=== PATIENT | female | born 1965 | race Caucasian/White ===

== ENCOUNTER 2021-11-10 15:30 | Emergency (ER) | payer OTHER, SELFPAY ==
--- NOTE | ~2021-11-10 | XR_ITS ---
EXAMINATION: XR chest 2V DATE: 11/10/2021 16:07 INDICATION: Cough TECHNIQUE: PA and lateral views of the chest are obtained. COMPARISON: None available FINDINGS: The lungs are free of acute opacities. There is no pleural effusion or pneumothorax. The ca rdiomediastinal silhouette is normal. There is moderate thoracic spondylosis. IMPRESSION: 1. No acute cardiopulmonary abnormality. Reviewed, dictated and finalized at location B.
[2021-11-10 15:50] VITALS: BP 160/102; PULSE 109; RESP 18; TEMP 36.8; O2SAT 100
--- NOTE | 2021-11-10 15:56 | ED.URI ---
HPI - URI/Sore Throat General Chief Complaint: Upper Respiratory Infection Stated Complaint: cough Time Seen by Provider: 11/10/21 16:05 Source: patient Mode of arrival: ambulatory Limitations: no limitations History of Present Illness HPI Narrative: Marie Candelaria is a 56 yo female with no PMH who has 2 of cough that has recently worsened, and has been in bed for last 2 days, has cough low-grade fever feels terrible he states that her nose has been dry so much is starting to bleed Related Data Allergies Allergy/AdvReac Type Severity Reaction Status Date / Time No Known Allergies Allergy Mild Verified 11/10/21 15:58 Review of Systems Review of Systems: CONSTITUTIONAL: have fever, chills, sweats. EYES: Denies visual changes, redness, discharge. ENT: Denies rhinorrhea, has congestion, sore throat, otalgia. CARDIOVASCULAR: Denies chest pain, palpitations, edema. RESPIRATORY: Denies dyspnea, wheezing, has dry cough GASTROINTESTINAL: Denies abdominal pain, nausea, vomiting, diarrhea. GENITOURINARY: Denies dysuria, hematuria, abnormal discharge SKIN: Denies rash or itching. NEUROLOGIC: Denies numbness, or focal weakness. PSYCHIATRIC: Denies anxiety or depression. [facility] Past Medical History Medical History Healthy adult Surgical History Surgical History H/O foot surgery bilateral Hx of section Social History Social History (Updated 11/10/21 @ 16:19 by Lulu Sr CNP) Smoking status: Never smoker Alcohol intake: current Comments At time of signature, I agree with nursing past medical, surgical, social and family history. There is no relevant family history pertinent to the presenting complaint. Note Blood pressure elevated at this visit that does not have a diagnosis of high blood pressure should follow-up Exam Narrative: GENERAL: This is a well-nourished, well-developed patient, in moderate distress. Diaphoretic HEAD: normocephalic, atraumatic. EYES: Sclera clear/white. Vision is grossly intact. EARS: External ears normal, Hearing grossly intact. NOSE: External nose normal without nasal discharge, nares without redness, no rhinorrhea. THROAT: Mucous membranes moist, NECK: Neck supple, non-tender CARDIOVASCULAR: Tachycardic rate and rhythm without murmurs, gallops, or rubs. RESPIRATORY: Clear to auscultation. Breath sounds equal diminished mid left. No wheezes, rales, or rhonchi. GASTROINTESTINAL: Abdomen soft, non-tender, SKIN: warm, intact with no suspicious lesions or rash, good texture and turgor. NEURO: awake, alert, and oriented to person, place and time. There were no obvious focal neurologic abnormalities. Steady gait EXTREMITIES: Normal range of motion. BACK: Nontender without deformity Course Course Emergency Course: Patient sick for 2 weeks with a cough in the last week is gone worse feeling poorly has had no energy fatigue Flu swab done-positive for flu a chest xray negative Patient has symptoms of chronic nasal congestion and is concerned about infection Started on Augmentin Level of Care: Express Care Visit Vital Signs Vital signs: Vital Signs Temperature 98.3 F 11/10/21 15:50 Pulse Rate 109 H 11/10/21 15:50 Respiratory Rate 18 11/10/21 15:50 Blood Pressure 160/102 H 11/10/21 15:50 Pulse Oximetry 100 11/10/21 15:50 Temperature 98.3 F 11/10/21 15:50 Pulse Rate 109 H 11/10/21 15:50 Respiratory Rate 18 11/10/21 15:50 Blood Pressure 160/102 H 11/10/21 15:50 Pulse Oximetry 100 11/10/21 15:50 MDM - URI/Sore Throat Differential Diagnosis Differential diagnosis: Likely upper respiratory infection, sinusitis, viral infection and influenza Lab Data Labs: Influenza A Screen Positive Reference Range: Negative Influenza B Screen Negative
== END 2021-11-10 16:31 | disposition home or self-care (01) ==
PROVIDERS: Emergency Provider Nurse Practitioner
DX: J10.1 Influenza due to other identified influenza virus with other respiratory manifestations (principal); J32.9 Chronic sinusitis, unspecified
CPT/HCPCS: 71046; 87804; 99213; G0463

== ENCOUNTER 2025-01-10 09:33 | Emergency (ER) | payer OTHER, SELFPAY ==
--- NOTE | ~2025-01-10 | XR_ITS ---
EXAMINATION: XR ankle RT min 3V DATE: 01/10/2025 10:32 INDICATION: Right ankle pain and swelling post fall TECHNIQUE: Anteroposterior, oblique, mortise, and lateral views of the right ankle were obtained. COMPARISON: None. FINDINGS: Alignment is normal. No fracture. 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 Small Achilles and plantar calcaneal spurs. Soft tissue swelling overlying the lateral malleolus. No evident ankle joint effusion. IMPRESSION: 1. Mild degenerative skeletal changes. No acute osseous abnormality. Reviewed, dictated and finalized at location A.
[2025-01-10 09:49] VITALS: BP 179/75; PULSE 88; RESP 18; TEMP 36.4; O2SAT 100
--- NOTE | 2025-01-10 10:07 | ED.LOWEXIN ---
HPI - Extremity Injury (Lower) General Chief Complaint: Extremity Injury, Lower Stated Complaint: fall Time Seen by Provider: 01/10/25 10:17 Source: patient, RN notes reviewed and old records reviewed Mode of arrival: ambulatory Limitations: no limitations History of Present Illness HPI Narrative: 59-year-old female presents to the [facility] complaints right ankle pain and swelling. Patient states that she ?tripped over air? at 2:00 p.m. yesterday. Has taken Aleve and has been applying ice Currently has her own set of crutches Onset (ago): hour(s) Treatments prior to arrival: cold therapy and NSAIDS Related Data Home Medications ?Medication ?Instructions ?Recorded ?Confirmed ?Last Taken ?Type No Home Medications 01/10/25 01/10/25 Unknown History Allergies Allergy/AdvReac Type Severity Reaction Status Date / Time No Known Allergies Allergy Mild Verified 01/10/25 09:58 Review of Systems Review of Systems: All systems reviewed & are unremarkable except as noted in HPI and below Constitutional: Constitutional: Reports no additional constitutional complaints ENT: Reports system reviewed and no additional complaints, except as documented Cardiovascular: Cardiovascular: Reports no additional cardiovascular complaints, Denies chest pain and Denies dyspnea Respiratory: Respiratory: Reports no additional respiratory complaints, Denies chest congestion, Denies cough and Denies dyspnea Musculoskeletal: Musculoskeletal: Reports as per HPI, Reports abnormal gait, Reports arthralgias and Reports joint swelling Integumentary/Breasts: Skin/Breast: Reports system reviewed and no additional complaints, except as docu PMFSH Past Medical History Medical History Healthy adult Surgical History Surgical History H/O foot surgery bilateral Hx of section Social History Social History Smoking status: Never smoker Alcohol intake: current Comments At the time of my signature, I reviewed and agree with the nursing past medical, surgical, social, and family history. There is no relevant family history pertinent to the patient complaint. Exam Const: General: cooperative, healthy appearing, comfortable, no acute distress, well developed, alert and well nourished Nutritional Appearance: well nourished and obese Orientation/consciousness: patient oriented x3 Limitations: no limitations HENMT: Head: normal to inspection Eyes: General: appearance normal, both eyes and all related structures Alignment and Position: alignment normal Neck: Neck: normal visual inspection, full ROM, no lymphadenopathy and no meningeal signs Chest: Chest palpation & inspection: normal inspection of the chest Resp: Effort & Inspection: normal respiratory effort and able to speak in complete sentences Cardio: Rate: regular rate Skin: General skin exam: normal color and no rashes or lesions noted Neuro: General: patient oriented x3, gait normal, moves all extremities and no meningeal signs Cognition (Neuro): normal cognition Speech: normal speech Gait exam (Neuro): Normal gait present Extrem: General: normal to inspection, full ROM, capillary refill normal and normal gait Right lower extremity: knee Details: normal to inspection, lower leg Details: normal to inspection, ankle Details: tenderness Location: of the lateral malleolus and swelling Details: laterally and foot Details: normal capillary refill, toes with normal ROM, vascular exam Details: dorsalis pedis pulse present and normal capillary refill and motor-sensory exam Details: light-touch normal; no ecchymosis Psych: Appearance: grossly normal and well kempt Mental Status: mental status grossly normal Speech and movement: Normal speech and movement present and Clear speech present Affect: normal affect Attitude: cooperative Course Course Level of Care: Express Care Visit Vital Signs Vital signs: Vital Signs Temperature 97.5 F L 01/10/25 09:49 Pulse Rate 88 01/10/25 09:49 Respiratory Rate 18 01/10/25 09:49 Blood Pressure 179/75 H 01/10/25 09:49 Pulse Oximetry 100 01/10/25 09:49 Oxygen Delivery Room Air 01/10/25 09:49 Temperature 97.5 F L 01/10/25 09:49 Pulse Rate 88 01/10/25 09:49 Respiratory Rate 18 01/10/25 09:49 Blood Pressure 179/75 H 01/10/25 09:49 Pulse Oximetry 100 01/10/25 09:49 Oxygen Delivery Room Air 01/10/25 09:49 Reviewed MDM - Extremity Injury (Lower) MDM Narrative Medical decision making narrative: Patient sitting in exam. Patient is nontoxic, vitals are stable. Patient presents right ankle pain x-rays negative. Patient appropriate for outpatient treatment close follow-up Discharge instructions reviewed with patient, as well as provided in writing per nursing staff. The instructions also include specific and strict return/GO TO THE ER as well as f/u information. All questions have been answered, and the patient deny any further questions with discharge and discharge plan. Some parts of this dictation were generated by voice recognition software and may contain typographical and/or grammatical inaccuracies. Differential Diagnosis Differential diagnosis: Likely ankle sprain and strain and ankle fracture Imaging Data Radiologist's impression: EXAMINATION: XR ankle RT min 3V DATE: 01/10/2025 10:32 INDICATION: Right ankle pain and swelling post fall TECHNIQUE: Anteroposterior, oblique, mortise, and lateral views of the right ankle were obtained. COMPARISON: None. FINDINGS: Alignment is normal. No fracture. 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 Small Achilles and plantar calcaneal spurs. Soft tissue swelling overlying the lateral malleolus. No evident ankle joint effusion. IMPRESSION: 1. Mild degenerative skeletal changes. No acute osseous abnormality. Critical Care Time Critical Care Time Critical Care Time: No Discharge Plan Discharge Clinical Impression: Ankle sprain and strain Patient Disposition: Home Condition: Stable Instructions: Ankle Sprain (ED) Additional Instructions: Today your blood pressure was 179/75. Please follow-up with your primary care provider within the next 2 weeks to have this rechecked. Untreated or undertreated blood pressure can lead to more serous health issues Your Xray did not show a fracture. Wear good supportive shoes at all times. Ice should be applied to help reduce swelling. It can be used for 20 to 30 minutes, every 2-3 hours while awake. Do not apply ice directly to your skin. ankle braces or mai-wraps will help support your injured ankle. You can alternate ibuprofen 600mg and Tylenol 650mg every 4 hours as needed for pain Please schedule a follow-up visit with your personal physician for further evaluation and treatment within 2 weeks especially if symptoms persist. For new or worsening symptoms go directly to the emergency room Patient Language: Serbian Prescriptions: No Action No Home Medications Follow-up/Referrals: UNKNOWN,DOCTOR [Primary Care Provider] - Stand Alone Forms: Work/School Release IP Time of Disposition: 10:52
== END 2025-01-10 10:57 | disposition home or self-care (01) ==
PROVIDERS: Emergency Provider Nurse Practitioner
DX: S93.401A Sprain of unspecified ligament of right ankle, initial encounter (principal); S96.911A Strain of unspecified muscle and tendon at ankle and foot level, right foot, initial encounter; W01.0XXA Fall on same level from slipping, tripping and stumbling without subsequent striking against object, initial encounter
CPT/HCPCS: 73610; 99213; G0463

== ENCOUNTER 2025-03-07 04:53 | Emergency (ER) | payer OTHER, SELFPAY ==
[2025-03-07 05:00] VITALS: BP 188/93; PULSE 81; RESP 20; TEMP 36.8; O2SAT 99
--- NOTE | 2025-03-07 05:10 | ED.GENADULT ---
HPI - General Adult General Chief complaint: Unspecified Stated complaint: sciatica pain Time Seen by Provider: 03/07/25 05:03 History of Present Illness HPI narrative: 59-year-old female with a history of sciatica presenting to the emergency department with stated sciatica pain. Patient states she has been doing with sciatica intermittently for many years and this is the worst it has been. She states that she does see a chiropractor and has been having some relief of her sciatica for last few weeks but she was having exacerbation over last few days after she sat on a hard bench for several hours. Endorses her classical sciatic symptoms including pain down her left buttock into the posterior aspect of the leg into the knee. Is able ambulate and bear weight but notes certain positions make it uncomfortable. Worse with flexion at the hip and dorsiflexion of the ankle. No neuropathy or weakness. No neurological complaints or midline spinal pain or tenderness. No urinary issues. Has tried some ibuprofen, Aleve, hydrocodone at home without any symptom improvement. She has had steroids for this in the past with improvement. She has an upcoming appointment this Sunday with specialists to help address this. Related Data Allergies Allergy/AdvReac Type Severity Reaction Status Date / Time No Known Allergies Allergy Mild Verified 01/10/25 09:58 Review of Systems Review of Systems: As reviewed above in HPI [facility] Past Medical History Medical History Healthy adult Surgical History Surgical History H/O foot surgery bilateral Hx of section Social History Social History Smoking status: Never smoker Alcohol intake: current Exam Narrative: GENERAL: Tearful and affect but not any acute physical distress HEAD: [Normocephalic, atraumatic.] EYES: [PERRLA and EOMI.] ENT: Nares clear, no rhinorrhea or epistaxis. Mucous membranes moist. NECK: Supple. CHEST: [Clear to auscultation. No respiratory distress.] HEART: [Regular rate and rhythm]. No murmur heard. [Normal peripheral pulses.] ABDOMEN: [Soft, nondistended], [nontender], [No rigidity or guarding] EXTREMITIES: Pain is reproducible with straight leg raise on the left side, contralateral straight leg raise also elicits left-sided symptoms. Plantar flexion and dorsiflexion 5/5 but pain reproducible with dorsiflexion of the left ankle. EHL and FHL with 5/5 strength. No footdrop or weakness. No tenderness along the hip or knee. No tenderness on the ankle. SKIN: Warm, dry, no rash. NEURO: [No focal deficits]. Alert and oriented [x3.] PSYCH: [Normal mood and affect.] Course Vital Signs Vital signs: Vital Signs Temperature 36.8 C 03/07/25 05:00 Pulse Rate 81 03/07/25 05:00 Respiratory Rate 20 03/07/25 05:00 Blood Pressure 188/93 H 03/07/25 05:00 Pulse Oximetry 99 03/07/25 05:00 Oxygen Delivery Room Air 03/07/25 05:00 Temperature 36.8 C 03/07/25 05:00 Pulse Rate 85 03/07/25 07:21 Respiratory Rate 18 03/07/25 07:21 Blood Pressure 169/81 H 03/07/25 07:21 Pulse Oximetry 96 03/07/25 07:21 Oxygen Delivery Room Air 03/07/25 05:00 Medical Decision Making MDM Narrative Medical decision making narrative: 59-year-old female with a history of sciatica presenting to the emergency department with stated sciatica pain. Patient states she has been doing with sciatica intermittently for many years and this is the worst it has been. She states that she does see a chiropractor and has been having some relief of her sciatica for last few weeks but she was having exacerbation over last few days after she sat on a hard bench for several hours. Endorses her classical sciatic symptoms including pain down her left buttock into the posterior aspect of the leg into the knee. Is able ambulate and bear weight but notes certain positions make it uncomfortable. Worse with flexion at the hip and dorsiflexion of the ankle. No neuropathy or weakness. No neurological complaints or midline spinal pain or tenderness. No urinary issues. Has tried some ibuprofen, Aleve, hydrocodone at home without any symptom improvement. She has had steroids for this in the past with improvement. She has an upcoming appointment this Sunday with specialists to help address this. Patient is tearful but not any acute distress, does have reproducible pain with straight leg raise and contralateral straight leg raise. No neurological findings on examination and no red flag signs or symptoms of back pain such as conus medullaris or cauda equina pathology. No footdrop or paresthesias. No saddle anesthesias. EHL and FHL 5/5 strength. Strong symmetric pulses. Mildly hypertensive but appears in pain. No tachycardia, fever or hypoxia. She was given intramuscular Decadron and Dilaudid for analgesia and pain control. Oral Robaxin administered. Patient re-evaluated for symptom improvement. No indications for advanced imaging at this time as the patient has a history of sciatica and this feels very classic for her flare up. Patient evaluated after initial treatment around and had mild relief but still feeling significant amounts of pain. She was given IV Dilaudid and Toradol and re-evaluated. Patient had significant improvement after repeat dilaudid and was stable for discharge home. Given prescription medications and follow-up instructions. Medical Records Medical records reviewed: Yes I reviewed the external patient's medical records. Vital Signs Vital Signs: Vital Signs Temperature 36.8 C 03/07/25 05:00 Pulse Rate 81 03/07/25 05:00 Respiratory Rate 20 03/07/25 05:00 Blood Pressure 188/93 H 03/07/25 05:00 Pulse Oximetry 99 03/07/25 05:00 Oxygen Delivery Room Air 03/07/25 05:00 Temperature 36.8 C 03/07/25 05:00 Pulse Rate 85 03/07/25 07:21 Respiratory Rate 18 03/07/25 07:21 Blood Pressure 169/81 H 03/07/25 07:21 Pulse Oximetry 96 03/07/25 07:21 Oxygen Delivery Room Air 03/07/25 05:00 Lab Data Lab results reviewed: Yes I reviewed the patient's lab results. Discharge Plan Discharge Clinical Impression: Sciatica Patient Disposition: Home Condition: Stable Instructions: Antibiotic Form, Sciatica (ED) Additional Instructions: You were seen for sciatic nerve irritation and pain. Will prescribe you medications for symptom control at home. Follow-up with regular doctor. Return with any emergent concerns. Patient Language: Croatian Prescriptions: New acetaminophen [Tylenol Extra Strength] 500 mg tablet 1,000 mg PO TID PRN (Reason: pain) Qty: 30 0RF ketorolac 10 mg tablet 10 mg PO Q8H PRN (Reason: pain) 5 Days Qty: 20 0RF Rx Instructions: maximum total duration of 5 days from all oral, intranasal, or parenteral formulations methocarbamol 750 mg tablet 750 mg PO TID PRN (Reason: pain) Qty: 20 0RF lidocaine 5 % adhesive patch,medicated 1 patch topical DAILY Qty: 15 0RF Rx Instructions: leave on most painful area for up to 12 hrs Follow-up/Referrals: Emi Rowan NP [Primary Care Provider] - Time of Disposition: 07:18
[2025-03-07] MEDS: HYDROmorphone HCL INJ (*CRX) 2 MG/ML VIAL 1 MG IM (05:18)
[2025-03-07] MEDS: dexAMETHasone SOD PHOS INJ 10 MG/ML 1 ML VIAL IM (05:18)
[2025-03-07] MEDS: HYDROmorphone HCL INJ (*CRX) 2 MG/ML VIAL 1 MG IV PUSH (06:32)
[2025-03-07] MEDS: KETOROLAC 15 MG/ML VIAL (*BKC) IV PUSH (06:34)
[2025-03-07 07:09] VITALS: O2SAT 98
[2025-03-07 07:21] VITALS: BP 169/81; PULSE 85; RESP 18; O2SAT 96
== END 2025-03-07 07:33 | disposition home or self-care (01) ==
PROVIDERS: Emergency Provider Student in an Organized Health Care Education/Training Program; PCP Nurse Practitioner Family
DX: M54.32 Sciatica, left side (principal)
CPT/HCPCS: 96372; 96374; 96375; 99284; A9270; J1100; J1171; J1885

== ENCOUNTER 2025-05-26 07:28 | Outpatient (CLI) | payer OTHER, SELFPAY ==
--- NOTE | ~2025-05-26 | MR_ITS ---
EXAMINATION: MR ankle RT wo con DATE: 05/26/2025 08:03 INDICATION: Achilles tendon rupture TECHNIQUE: Magnetic resonance imaging (MRI) of the right ankle was performed without intravenous contrast. Sequences included sagittal, coronal, and axial proton-density weighted fast spin echo without and with fat saturation. COMPARISON: None. FINDINGS: Medial ankle ligaments: The superficial deltoid ligament as well as the spring ligament are normal. There is loss of the normally well-defined striated pattern to the deep deltoid ligament without associated edema consistent with scarring related to chronic sprain. Lateral ankle ligaments: The anterior and posterior inferior tibiofibular ligaments are normal. The anterior talofibular, calcaneofibular and posterior talofibular ligaments are normal. Tendons: Moderate Achilles tendinosis with near complete tear of the tendon occurring approximately 4.5 similar proximal to its calcaneal insertion. A single small slip of the tendon comprising less than 710% of the cross-sectional diameter of the tendon appears to remain intact. The torn portion of the tendon is retracted approximately 3 cm proximally with lax wavy appearance on the sagittal imaging. There is moderate tendinopathy of the distal plantaris tendon without discrete tear. Moderate tendinopathy of the peroneus longus and brevis tendons with longitudinal split tear of the peroneus brevis tendon and mild associated tenosynovitis. The tibialis anterior and extensor hallucis longus and extensor digitorum longus tendons are normal. The tibialis posterior, flexor digitorum longus and flexor hallucis longus tendons are normal. Plantar fascia: Moderate tendinopathy/enthesopathy of the central and lateral components of the plantar aponeurosis with moderate-sized plantar calcaneal spur at its calcaneal origin. There is thickening and increased fluid signal in the underlying plantar fat pad. Bones/other: Bone alignment is normal. No fracture or pathologic marrow replacing process. Polyarticular osteoarthritis, moderate severity at the second and third tarsal metatarsal joints and the naviculocuneiform joint. Mild osteoarthritis at the right ankle and remaining joints in the mid and hindfoot. Fluid: Small amount of fluid likely hematoma at the Achilles tendon tear defect. Physiologic amount fluid in the joint spaces. No other abnormal fluid collections. IMPRESSION: 1. Moderate Achilles tendinosis with high-grade partial/near complete tear located 4.5 similar proximal to the calcaneal insertion. 2. Moderate tendinopathy without discrete tear of the distal plantaris tendon. 3. Mild peroneal tenosynovitis with moderate tendinopathy of the peroneus longus and brevis tendons, the latter with longitudinal split tearing near the tip of the lateral malleolus. 4. Polyarticular osteoarthritis right ankle, mid and hindfoot, moderate severity at the naviculocuneiform and second and third tarsal metatarsal joints and otherwise mild. 5. Moderate chronic plantar enthesopathy with moderate-sized plantar calcaneal spur and edema and thinning of the underlying plantar fat pad. Would favor plantar fat pad syndrome over acute plantar fasciitis. Reviewed, dictated and finalized at location A. IMPRESSION: 1. Moderate Achilles tendinosis with high-grade partial/near complete tear loca danika 4.5 similar proximal to the calcaneal insertion. 2. Moderate tendinopathy without discrete tear of the distal plantaris tendon. 3. Mild peroneal tenosynovitis with moderate tendinopathy of the peroneus longu s and brevis tendons, the latter with longitudinal split tearing near the tip o f the lateral malleolus. 4. Polyarticular osteoarthritis right ankle, mid and hindfoot, moderate severit y at the naviculocuneiform and second and third tarsal metatarsal joints and ot herwise mild. 5. Moderate chronic plantar enthesopathy with moderate-sized plantar calcaneal spur and edema and thinning of the underlying plantar fat pad. Would favor plan tar fat pad syndrome over acute plantar fasciitis.
== END 2025-05-26 07:29 | disposition home or self-care (01) ==
LOC: MICIMG 07:29
PROVIDERS: PCP Nurse Practitioner Family; Visit Provider Podiatrist Foot & Ankle Surgery
DX: S86.011A Strain of right Achilles tendon, initial encounter (principal); X58.XXXA Exposure to other specified factors, initial encounter; M19.071 Primary osteoarthritis, right ankle and foot
CPT/HCPCS: 73721

== ENCOUNTER 2025-06-22 07:34 | Outpatient (CLI) | payer OTHER, SELFPAY ==
--- NOTE | ~2025-06-22 | NM_ITS ---
EXAMINATION: NM serena stress w perfusion DATE: 06/22/2025 11:23 INDICATION: Essential hypertension TECHNIQUE: Rest images were obtained following intravenous administration of 10.7 mCi Tc99m tetrofosmin (Myoview). The patient was infused intravenously with Lexiscan (Regadenoson). Then, 30 mCi Tc99m tetrofosmin (Myoview) was administered intravenously, and stress images were obtained, initially in the supine position with repeat post stress imaging obtained in the prone position. Data was reconstructed into short axis and horizontal and vertical long axis SPECT images. Gated SPECT images were also obtained. COMPARISON: None. FINDINGS: There is likely breast attenuation artifact along the anterior and lateral post stress imaging obtained in the supine position which normalizes in these locations on the prone post stress imaging. There is normal left ventricular chamber size, wall motion and ejection fraction. Left ventricular ejection fraction measures 70%. IMPRESSION: 1. Normal myocardial perfusion at rest and during stress. 2. Left ventricular ejection fraction measuring 70%. Reviewed, dictated and finalized at location A. 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
--- NOTE | 2025-06-22 07:57 | EST_ITS ---
Patient Info Name: Marie Candelaria Age: 60 years : 1965 Gender: Female Ht: 65 in Wt: 247 lbs BSA: 2.32 m2 HR: 61 bpm BP: 132 / 57 mmHg Exam Date: 06/22/2025 7:57 AM Patient Status: O Admit Date: 06/22/2025 Exam Type: CA stress serena w NM A regadenoson stress test was performed. Staff Referring Physician: Emi Rowan Attending Provider: Emi Rowan Exercise Technologist: Danae Louis Exercise Physician: Bud Medrano DO Summary 1. 1. Negative lexiscan stress test for ischemic ST changes by ECG criteria. 2. 2. Stable hemodynamics throughout the test. 3. 3. Nuclear scan to follow and will be reported separately. Please correlate with it. 4. 4. Patient informed of the above results. Protocol: Lexiscan Stress ECG Details Stage: REST Duration (min): 1 min : 9 sec HR (bpm): 61 SBP (mmHg): 132 DBP (mmHg): 57 Stage: REST Duration (min): 10 min : 21 sec HR (bpm): 68 SBP (mmHg): 132 DBP (mmHg): 57 Stage: STAGE 1 Duration (min): 1 min : 0 sec HR (bpm): 77 SBP (mmHg): 137 DBP (mmHg): 70 Stage: RECOVERY Duration (min): 1 min : 0 sec HR (bpm): 89 SBP (mmHg): 137 DBP (mmHg): 70 Stage: RECOVERY Duration (min): 2 min : 0 sec HR (bpm): 80 SBP (mmHg): 137 DBP (mmHg): 70 Stage: RECOVERY Duration (min): 3 min : 0 sec HR (bpm): 73 SBP (mmHg): 129 DBP (mmHg): 68 Stage: RECOVERY Duration (min): 3 min : 18 sec HR (bpm): 77 SBP (mmHg): 129 DBP (mmHg): 68 Rest HR: 68 bpm Peak HR: 89 bpm Rest Sys BP: 132 mmHg Peak Sys BP: 137 mmHg Max Pred HR: 160 bpm % Max Pred HR: 56 % Target HR: 136 bpm Max RPP: 12,193 bpm*mmHg Termination Reason: Completed protocol Cardiac Symptoms: Shortness of breath Total Time: 1 min : 0 sec Rest Smith BP: 57 mmHg Peak Smith BP: 70 mmHg Total Dose: 0.4 mg Resting ECG Sinus rhythm. Stress ECG No ST changes. Arrhythmias None. Report Signatures
== END 2025-06-22 07:35 | disposition home or self-care (01) ==
PROVIDERS: PCP Nurse Practitioner Family; Visit Provider Nurse Practitioner Family
DX: I10 Essential (primary) hypertension (principal); R68.89 Other general symptoms and signs
CPT/HCPCS: 78452; 93017; A9502; J2785